=== PATIENT | female | born 1950 ===

== ENCOUNTER 2018-07-20 08:00 | Inpatient (IN) | payer OTHER ==
[~2018-07-20] VITALS: Ht 170.2 cm; Wt 119.7 kg
[~2018-07-20 08:00] MED LIST: LOSARTAN-HCTZ1 EAC1 PO; METFORMIN HCL500 MG PO; NAPROXEN SODIU550 M1 PO
[2018-07-26] MEDS ORDERED: IBUPROFEN600 MG PO (07:36)
[2018-07-26] MEDS ORDERED: LEVSIN/SL0.125 MG SL (07:36)
[2018-07-26] MEDS ORDERED: ULTRACET PO (07:36)
[2018-07-26] MEDS ORDERED: CLEOCIN HCL300 MG PO (07:36)
== END 2018-07-26 09:02 | disposition home or self-care (01) | DRG 743 ==
LOC: O/R 07-24 06:20 → OB/GYN 07-24 06:20 → SURH 07-24 08:00 → OB/GYN 07-24 12:06
PROVIDERS: ADMIT Obstetrics & Gynecology Gynecology
PROC: 0UT70ZZ Resection of Bilateral Fallopian Tubes, Open Approach (ICD-10-PCS; 2018-07-24)
PROC: 0UT20ZZ Resection of Bilateral Ovaries, Open Approach (ICD-10-PCS; 2018-07-24)
PROC: 0UT90ZZ Resection of Uterus, Open Approach (ICD-10-PCS; principal; 2018-07-24 09:00)
DX: D25.1 Intramural leiomyoma of uterus (principal); D25.0 Submucous leiomyoma of uterus; D25.2 Subserosal leiomyoma of uterus; N85.01 Benign endometrial hyperplasia